=== PATIENT | female | born 1950 | race Caucasian/White ===

== ENCOUNTER → 2018-04-01 03:36 | Outpatient (CLI) | payer MEDICARE, BC, SELFPAY ==
[2018-04-01 11:40] LABS: ALT 23 U/L (12-78); AST 17 U/L (15-37); Albumin 3.8 g/dL (3.4-5.0); Alkaline Phosphatase 52 U/L (46-116); Anion Gap 5.5 mmol/L (3-11); BUN 16 mg/dL (7-18); Bilirubin, Total 0.6 mg/dL (0.2-1.0); CO2 28.5 mmol/L (21.0-32.0); CREATININE 1.02 mg/dL (0.55-1.02); Calcium 8.6 mg/dL (8.5-10.1); Chloride 104 mmol/L (98-107); Cholesterol 214 mg/dL (50-200); Estimated GFR 53.73 (mL/min/1.73m2); Glucose 90 mg/dL (70-100); HDL Cholesterol 66 mg/dL (40-60); LDL CHOLESTEROL 132 mg/dL (<100); Potassium 4.8 mmol/L (3.5-5.1); Sodium 138 mmol/L (136-145); Total Protein 6.8 g/dL (6.4-8.2); Triglyceride 71 mg/dL (30-150)
== END ==
DX: I10 Essential (primary) hypertension (principal); F43.21 Adjustment disorder with depressed mood; I71.00 Dissection of unspecified site of aorta; E78.5 Hyperlipidemia, unspecified
CPT/HCPCS: 36415; 80053; 80061; 83721

== ENCOUNTER 2020-03-28 04:08 | Outpatient (CLI) | payer MEDICARE, BC, SELFPAY ==
[2020-03-28 12:53] LABS: ALT 22 U/L (14-59); AST 15 U/L (15-37); Albumin 4.1 g/dL (3.4-5.0); Alkaline Phosphatase 51 U/L (46-116); Anion Gap 8.8 mmol/L (3-11); BUN 14 mg/dL (7-18); Bilirubin, Total 0.9 mg/dL (0.2-1.0); CO2 26.2 mmol/L (21.0-32.0); CREATININE 0.82 mg/dL (0.55-1.02); Calcium 8.9 mg/dL (8.5-10.1); Calculated LDL 137 mg/dL (<100); Chloride 105 mmol/L (98-107); Cholesterol 220 mg/dL (<200); Glucose 92 mg/dL (74-106); HDL Cholesterol 71 mg/dL (40-60); Potassium 4.1 mmol/L (3.5-5.1); Sodium 140 mmol/L (136-145); Total Protein 7.3 g/dL (6.4-8.2); Triglyceride 62 mg/dL (<150)
== END 2020-03-28 04:28 ==
DX: D17.9 Benign lipomatous neoplasm, unspecified (principal); I10 Essential (primary) hypertension; I71.00 Dissection of unspecified site of aorta; M25.519 Pain in unspecified shoulder; M54.30 Sciatica, unspecified side; Z95.828 Presence of other vascular implants and grafts
CPT/HCPCS: 36415; 80053; 80061

== ENCOUNTER 2021-03-21 04:02 | Outpatient (CLI) | payer MEDICARE, BC, SELFPAY ==
[2021-03-21 12:52] LABS: ALT 24 U/L (14-59); AST 16 U/L (15-37); Albumin 3.9 g/dL (3.4-5.0); Alkaline Phosphatase 54 U/L (46-116); Anion Gap 8.7 mmol/L (3-11); BUN 14 mg/dL (7-18); Bilirubin, Total 0.7 mg/dL (0.2-1.0); CO2 27.3 mmol/L (21.0-32.0); CREATININE 0.8 mg/dL (0.55-1.02); Calcium 8.8 mg/dL (8.5-10.1); Chloride 105 mmol/L (98-107); Glucose 86 mg/dL (74-106); Potassium 4.2 mmol/L (3.5-5.1); Sodium 141 mmol/L (136-145); Total Protein 7.2 g/dL (6.4-8.2)
== END 2021-03-21 04:03 | disposition home or self-care (01) ==
LOC: LOS 04:02
DX: I10 Essential (primary) hypertension (principal)
CPT/HCPCS: 36415; 80053

== ENCOUNTER 2022-05-30 08:28 | Outpatient (CLI) | payer MEDICARE, SELFPAY ==
[2022-05-30 12:24] LABS: Anion Gap 5.9 mmol/L (3-11); BUN 18 mg/dL (7-18); CO2 28.1 mmol/L (21.0-32.0); Calcium 8.9 mg/dL (8.5-10.1); Chloride 104 mmol/L (98-107); Estimated GFR 59.49 (mL/min/1.73m2); Glucose 98 mg/dL (74-106); Potassium 4.1 mmol/L (3.5-5.1); Sodium 138 mmol/L (136-145)
== END 2022-05-30 08:29 | disposition home or self-care (01) ==
LOC: LOS 08:28
PROVIDERS: PCP Family Medicine; Referring Provider Family Medicine; Visit Provider Family Medicine
DX: I10 Essential (primary) hypertension (principal)
CPT/HCPCS: 36415; 80048

== ENCOUNTER 2023-04-09 05:23 | Outpatient (CLI) | payer MEDICARE, SELFPAY ==
[2023-04-09 12:36] LABS: ALT 22 U/L (14-59); AST 16 U/L (15-37); Albumin 3.9 g/dL (3.4-5.0); Alkaline Phosphatase 61 U/L (46-116); Anion Gap 6.7 mmol/L (3-11); BUN 18 mg/dL (7-18); Bilirubin, Total 0.6 mg/dL (0.2-1.0); CO2 30.3 mmol/L (21.0-32.0); CREATININE 0.9 mg/dL (0.55-1.02); Calcium 8.9 mg/dL (8.5-10.1); Calculated LDL 75 mg/dL (<100); Chloride 106 mmol/L (98-107); Cholesterol 146 mg/dL (<200); Estimated GFR 67.08 (mL/min/1.73m2); Glucose 89 mg/dL (74-106); HDL Cholesterol 63 mg/dL (40-60); Sodium 143 mmol/L (136-145); Total Protein 7.5 g/dL (6.4-8.2); Triglyceride 42 mg/dL (<150)
== END 2023-04-09 05:24 | disposition home or self-care (01) ==
LOC: LOS 05:23
PROVIDERS: PCP Family Medicine; Visit Provider Family Medicine
DX: I10 Essential (primary) hypertension (principal); Z13.6 Encounter for screening for cardiovascular disorders
CPT/HCPCS: 36415; 80053; 80061

== ENCOUNTER 2024-04-20 10:39 | Outpatient (CLI) | payer MEDICARE, SELFPAY ==
[2024-04-20 12:09] LABS: Abs Immature Grans 0.02 10^3/uL (0.0-0.06); Absolute Basophil Count 0.04 10^3/uL (0.0-0.2); Absolute Eosinophil Count 0.11 10^3/uL (0.0-0.7); Absolute Lymphocyte Count 1.16 10^3/uL (1.2-3.4); Absolute Neutrophil Count 4.17 10^3/uL (1.2-6.7); Basophils % 0.7 %; Eosinophils % 1.9 %; HCT 44.6 % (36.0-46.0); HGB 14.1 g/dL (11.2-15.7); Immature Grans % 0.3 %; Lymphocytes % 19.7 %; MCHC 31.6 % (32.0-36.0); MCV 92 fL (80-95); MPV 11.4 fL (8.0-11.0); Monocytes % 6.8 %; Neutrophils % 70.6 %; Platelet Count 177 10^3/uL (130-400); RBC 4.86 10^6/uL (3.93-5.22); RDW-SD 43.8 fL
[2024-04-20 12:24] LABS: Anion Gap 7.2 mmol/L (3-11); BUN 27 mg/dL (7-18); CO2 28.8 mmol/L (21.0-32.0); CREATININE 0.9 mg/dL (0.55-1.02); Calcium 9.3 mg/dL (8.5-10.1); Chloride 105 mmol/L (98-107); Estimated GFR 66.67 (mL/min/1.73m2); Glucose 98 mg/dL (74-106); Sodium 141 mmol/L (136-145)
== END 2024-04-20 10:40 | disposition home or self-care (01) ==
LOC: LOS 10:39
PROVIDERS: PCP Family Medicine; Referring Provider Family Medicine; Visit Provider Family Medicine
DX: M20.42 Other hammer toe(s) (acquired), left foot (principal); I10 Essential (primary) hypertension
CPT/HCPCS: 36415; 80048; 85025

== ENCOUNTER 2024-06-14 01:55 | Outpatient (CLI) | payer MEDICARE, SELFPAY ==
[2024-06-14 12:41] LABS: BUN 28 mg/dL (7-18); Calcium 9.6 mg/dL (8.5-10.1); Chloride 104 mmol/L (98-107); Estimated GFR 58.75 (mL/min/1.73m2); Glucose 94 mg/dL (74-106); Potassium 3.9 mmol/L (3.5-5.1); Sodium 141 mmol/L (136-145)
== END 2024-06-14 01:56 ==
LOC: LOS 01:55
PROVIDERS: PCP Family Medicine; Visit Provider Family Medicine
DX: I10 Essential (primary) hypertension (principal)
CPT/HCPCS: 36415; 80048

== ENCOUNTER 2025-02-23 14:07 | Outpatient (REF) | payer MEDICARE, SELFPAY ==
[2025-02-23 22:19] LABS: PROTEIN < 6.0 mg/dL
[2025-02-23 22:21] LABS: ALT 33 U/L (14-59); AST 24 U/L (15-37); Albumin 4.2 g/dL (3.4-5.0); Alkaline Phosphatase 56 U/L (46-116); Anion Gap 10.7 mmol/L (3-11); BUN 22 mg/dL (7-18); Bilirubin, Total 0.8 mg/dL (0.2-1.0); CO2 27.3 mmol/L (21.0-32.0); Calcium 9.5 mg/dL (8.5-10.1); Chloride 101 mmol/L (98-107); Estimated GFR 76.79 (mL/min/1.73m2); Ferritin 91 ng/mL (8-252); Glucose 94 mg/dL (74-106); Potassium 4.1 mmol/L (3.5-5.1); Sodium 139 mmol/L (136-145); TSH (W/Ref FT4) 4.56 uIU/mL (0.36-3.74); Total Protein 7.3 g/dL (6.4-8.2); Vitamin D 25 Total 34 ng/mL (30-100)
[2025-02-28 13:52] LABS: Cystatin C, S 1.16 mg/L
== END 2025-02-23 14:08 | disposition home or self-care (01) ==
LOC: LBN 14:07
PROVIDERS: PCP Family Medicine; Visit Provider Family Medicine
DX: N18.30 Chronic kidney disease, stage 3 unspecified (principal); N18.9 Chronic kidney disease, unspecified; E03.9 Hypothyroidism, unspecified
CPT/HCPCS: 80053; 82306; 82610; 82565; 82728; 83970; 84156; 84439; 84443